=== PATIENT | male | born 1990 | race Caucasian/White ===

== ENCOUNTER 2020-12-28 15:22 | Emergency (ER) | payer OTHER, SELFPAY ==
[2020-12-28 15:33] VITALS: BP 150/73; PULSE 83; RESP 16; TEMP 37.2; O2SAT 100; BMI 33.4
[2020-12-28] MEDS: Diphth,Pertus(ACell),Tet Adult 0.5 ML SYRINGE IM (16:10)
--- NOTE | 2020-12-28 16:33 | ED.ANIMALBIT ---
HPI - Animal Bite General Chief Complaint: Animal Bite <SAGRARIO Ford Last Filed: 12/28/20 18:57> Stated Complaint: DOG BITE <SAGRARIO Ford Last Filed: 12/28/20 18:57> Time Seen by Provider: 12/28/20 15:47 <SAGRARIO Ford Last Filed: 12/28/20 18:57> Source: patient <SAGRARIO Ford Last Filed: 12/28/20 18:57> Mode of arrival: ambulatory <SAGRARIO Ford Last Filed: 12/28/20 18:57> Limitations: no limitations <SAGRARIO Ford Last Filed: 12/28/20 18:57> History of Present Illness HPI narrative: Patient presents to ED for left index laceration caused by his sister dog john. Patient was informed by sister that the dog is up-to-date with rabies vaccinations. Patient unsure of last Tdap. <SAGRARIO Ford Last Filed: 12/28/20 18:57> Related Data Home Medications: Previous Rx's Medication Instructions Recorded amoxicillin-pot clavulanate 1 tab PO Q12H #20 tab 12/28/20 [Augmentin] <SAGRARIO Ford Last Filed: 12/28/20 18:57> Allergies/Adverse Reactions: Allergies Allergy/AdvReac Type Severity Reaction Status Date / Time cefaclor [From Ceclor] Allergy Shortness Verified 12/28/20 15:38 of Breath <SAGRARIO Ford Last Filed: 12/28/20 18:57> Review of Systems Review of Systems: Yes all other systems are reviewed and are negative <SAGRARIO Ford Last Filed: 12/28/20 18:57> Constitutional: Constitutional: Reports as per HPI and Reports no additional constitutional complaints <SAGRARIO Ford Last Filed: 12/28/20 18:57> Eyes: Eyes: Reports as per HPI and Reports no additional eye complaints <SAGRARIO Ford Last Filed: 12/28/20 18:57> ENT: Reports system reviewed and no additional complaints, except as documented and Reports as per HPI <SAGRARIO Ford Last Filed: 12/28/20 18:57> Cardiovascular: Cardiovascular: Reports as per HPI and Reports no additional cardiovascular complaints <SAGRARIO Ford - Last Filed: 12/28/20 18:57> Respiratory: Respiratory: Reports as per HPI and Reports no additional respiratory complaints <SAGRARIO Ford Last Filed: 12/28/20 18:57> Gastrointestinal: Gastrointestinal: Reports as per HPI and Reports no additional gastrointestinal complaints <SAGRARIO Ford - Last Filed: 12/28/20 18:57> Genitourinary: Genitourinary: Reports no additional male genitourinary complaints and Reports as per HPI <SAGRARIO Ford Last Filed: 12/28/20 18:57> Musculoskeletal: Musculoskeletal: Reports no additional musculoskeletal complaints and Reports as per HPI <SAGRARIO Ford - Last Filed: 12/28/20 18:57> Comments: Recomendar seguimiento con PCP para resonancia magn?arabella para descartar desgarro del manguito rotador si no hay mejor?a index finger by <SAGRARIO Ford Last Filed: 12/28/20 18:57> Neurologic: Reports system reviewed and no additional complaints, except as documented and Reports as per HPI <SAGRARIO Ford Last Filed: 12/28/20 18:57> [facility] Past Medical History Medical History: Medical History (Updated 12/29/20 @ 00:01 by Background Daemon) No known health problems <SAGRARIO Ford Last Filed: 12/28/20 18:57> Social History Social History: Social History Alcohol intake: never Smoked in Last 30 Days: No Use of substances other than those prescribed or required for medical reasons: No Any prior treatment program specific to substance use: No Advance Directives: No Advance Directives Information Provided: No <SAGRARIO Ford Last Filed: 12/28/20 18:57> Physical Exam Vital Signs: Vital Signs: Last Vital Signs Temp 99 F 12/28/20 15:33 Pulse 83 12/28/20 15:33 Resp 16 12/28/20 15:33 BP 150/73 H 12/28/20 15:33 Pulse Ox 100 12/28/20 15:33 Body Mass Index 33.4 <SAGRARIO Ford - Last Filed: 12/28/20 18:57> Vital Signs: Last Vital Signs Temp 99 F 12/28/20 15:33 Pulse 83 12/28/20 15:33 Resp 16 12/28/20 15:33 BP 150/73 H 12/28/20 15:33 Pulse Ox 100 12/28/20 15:33 Body Mass Index 33.4 <Farhad Roldan MD - Last Filed: 01/22/21 00:31> Const: General: cooperative, healthy appearing, comfortable, no acute distress, well developed, alert and awake <SAGRARIO Ford Last Filed: 12/28/20 18:57> HENMT: Head: Yes normal to inspection, Yes No palpable skull fracture present, Yes normocephalic and Yes atraumatic <SAGRARIO Ford Last Filed: 12/28/20 18:57> Eyes: General: appearance normal, both eyes and all related structures <SAGRARIO Ford Last Filed: 12/28/20 18:57> Neck: Neck: Yes normal visual inspection, Yes full ROM, Yes no lymphadenopathy, Yes no meningeal signs, Yes trachea midline, Yes supple and No tender <SAGRARIO Ford Last Filed: 12/28/20 18:57> Chest: Chest palpation & inspection: normal inspection of the chest and normal palpation of entire chest wall <SAGRARIO Ford Last Filed: 12/28/20 18:57> Resp: Effort & Inspection: normal respiratory effort and able to speak in complete sentences <SAGRARIO Ford Last Filed: 12/28/20 18:57> Auscultation: clear to auscultation bilaterally <SAGRARIO Ford Last Filed: 12/28/20 18:57> Cardio: Jugular venous distension: no JVD <SAGRARIO Ford Last Filed: 12/28/20 18:57> Heart sounds: S1 normal heart sound present and S2 normal heart sound present <SAGRARIO Ford Last Filed: 12/28/20 18:57> GI: Inspection: Yes normal to inspection and No abdominal wall ecchymosis <SAGRARIO Ford Last Filed: 12/28/20 18:57> Palpation (GI): Soft to palpation, not firm, nontender, no guarding and not rigid <SAGRARIO Ford Last Filed: 12/28/20 18:57> : General: No CVA tenderness and Yes no CVA tenderness <SAGRARIO Ford Last Filed: 12/28/20 18:57> Back/Spine/Pelvis: Back: no CVA tenderness, No CVA tenderness and No back tenderness <SAGRARIO Ford Last Filed: 12/28/20 18:57> Skin: General skin exam: no rashes or lesions noted and elasticity normal <SAGRARIO Ford Last Filed: 12/28/20 18:57> Neuro: General: no meningeal signs <SAGRARIO Ford Last Filed: 12/28/20 18:57> Extrem: Other: Left upper extremity: Index finger positive for some very superficial abrasion on the lateral side of index on palm aspect due to dog. Patient has range of motion of left index finger. Negative for tendon injury. Negative for bone exposure. Capillary refill is intact. Rest of extremities negative for signs of trauma. Vascular/neuro exam intact <SAGRARIO Ford Last Filed: 12/28/20 18:57> Course Course Course Narrative: Laceration very superficial more like a skin tear/abrasion. No repair indicated. Will be clean and gauze placed. Tdap ordered. <SAGRARIO Ford Last Filed: 12/28/20 18:57> I have reviewed the chart <Farhad Roldan MD - Last Filed: 01/22/21 00:31> Reevaluation(s) Reevaluation #1: No indication for rabies vaccination due to patient stating he was informed by sister that the dog is up-to-date with rabies. Patient will be discharged with Augmentin due to dog bite. Patient states he has taken Augmentin and other penicillins with the past without any allergic reaction. Patient informed to watch his sister's dog to look for signs of rabies. Patient explains symptoms of rabies in dogs. <SAGRARIO Ford Last Filed: 12/28/20 18:57> Discharge Plan Discharge Clinical Impression: Bite by animal <SAGRARIO Ford Last Filed: 12/28/20 18:57> Patient Disposition: Home, Self-Care <SAGRARIO Ford - Last Filed: 12/28/20 18:57> Instructions: Animal Bite (ED), Abrasion (ED) <SAGRARIO Ford - Last Filed: 12/28/20 18:57> Additional Instructions: Return to the ED for swelling, redness, pus discharge, foul odor, fever, chills, numbness, bluish discoloration of finger, or any other concerning symptoms. <SAGRARIO Ford - Last Filed: 12/28/20 18:57> Prescriptions: New amoxicillin-pot clavulanate [Augmentin] 875-125 mg tablet 1 tab PO Q12H Qty: 20 RF: 0 <SAGRARIO Ford - Last Filed: 12/28/20 18:57> Referrals: Familia Peterson MD [Primary Care Provider] - 2 days (Dog bite. Dog is vaccinated for rabies. Started on Augmentin.) <SAGRARIO Ford - Last Filed: 12/28/20 18:57> Interventions: ED Discharge Assessment Last Done: 12/28/20 17:24 <SAGRARIO Ford - Last Filed: 12/28/20 18:57> Discharge Date/Time: 12/28/20 16:52 <SAGRARIO Ford - Last Filed: 12/28/20 18:57> Print Language: Lithuanian <SAGRARIO Ford - Last Filed: 12/28/20 18:57>
== END 2020-12-28 16:52 | disposition home or self-care (01) ==
PROVIDERS: Emergency Provider Emergency Medicine; PCP Internal Medicine
DX: S60.411A Abrasion of left index finger, initial encounter (principal); W54.0XXA Bitten by dog, initial encounter; Z20.3 Contact with and (suspected) exposure to rabies; Y93.89 Activity, other specified; Y92.019 Unspecified place in single-family (private) house as the place of occurrence of the external cause; Y99.9 Unspecified external cause status
CPT/HCPCS: 90471; 90715; 99284